=== PATIENT | female | born 1990 | race American Indian/Alaskan Native ===

== ENCOUNTER 2019-05-26 11:05 | Emergency (ER) | payer BC ==
--- NOTE | 2019-05-26 11:25 | Event Note ---
ED Screening Note Date of service: 05/26/19 Time: 11:23 ED Screening Note: 29 y/o female comes in for back pain and abd pain times 2 days. no vag d/c. LMP 04/30/19. Pain 5/10. PMH none This initial assessment/diagnostic orders/clinical plan/treatment(s) is/are subject to change based on patients health status, clinical progression and re- assessment by fellow clinical providers in the ED. Further treatment and workup at subsequent clinical providers discretion. Patient/guardian urged not to elope from the ED as their condition may be serious if not clinically assessed and managed. Initial orders include:
--- NOTE | 2019-05-26 11:48 | Emergency Department Report ---
ED Abdominal Pain HPI - General Chief Complaint: Abdominal Pain Stated Complaint: ABD/BACK PAIN Time Seen by Provider: 05/26/19 11:22 Source: patient Mode of arrival: Ambulatory Limitations: No Limitations - History of Present Illness Initial Comments: 29 yo female comes to ER with achy loer abd pain and back pain for 2 days. No dysuria or hematuria. No fever or chills. LMP 9-13 PMH ovarian cyst PSH ovarian cyst Ambulatory, non toxic, taking PO, non ill appearing on exam. Complaint: abdominal pain -: Gradual, week(s) Location: RLQ Radiation: none Migration to: no migration Severity: mild Severity scale (0 -10): 6 Quality: stabbing Consistency: intermittent Improves With: nothing Worsens With: nothing - Related Data Previous Rx's Medication Instructions Recorded Last Taken Type Ibuprofen [Motrin] 800 mg PO Q8HR PRN #30 tablet 05/26/19 Unknown Rx Allergies Allergy/AdvReac Type Severity Reaction Status Date / Time No Known Allergies Allergy Verified 05/26/19 11:14 ED Review of Systems ROS: Stated complaint: ABD/BACK PAIN Other details as noted in HPI Comment: All other systems reviewed and negative ED Past Medical Hx - Past Medical History Previous Medical History?: Yes Additional medical history: OVARIAN CYST - Surgical History Past Surgical History?: No - Social History Smoking Status: Never Smoker Substance Use Type: None - Medications Home Medications: Home Medications Medication Instructions Recorded Confirmed Last Taken Type Ibuprofen [Motrin] 800 mg PO Q8HR PRN #30 tablet 05/26/19 Unknown Rx ED Physical Exam - General Limitations: No Limitations General appearance: alert - Head Head exam: Present: normocephalic - Eye Eye exam: Present: normal appearance - ENT ENT exam: Present: normal exam - Neck Neck exam: Present: normal inspection - Respiratory Respiratory exam: Present: normal lung sounds bilaterally - Cardiovascular Cardiovascular Exam: Present: regular rate - GI/Abdominal GI/Abdominal exam: Present: soft, normal bowel sounds. Absent: distended, tenderness, guarding, rebound, rigid, diminished bowel sounds, hyperactive bowel sounds, hypoactive bowel sounds, organomegaly, mass, bruit, pulsatile mass, hernia - Rectal Rectal exam: Present: deferred - Extremities Exam Extremities exam: Present: normal inspection - Back Exam Back exam: Present: normal inspection - Neurological Exam Neurological exam: Present: alert, oriented X3 - Psychiatric Psychiatric exam: Present: normal affect, normal mood - Skin Skin exam: Present: warm, dry ED Course Vital Signs 05/26/19 11:15 Temperature 97.5 F L Pulse Rate 91 H Respiratory 16 Rate Blood Pressure 133/73 [Left] O2 Sat by Pulse 100 Oximetry ED Medical Decision Making - Lab Data Result diagrams: 05/26/19 11:38 05/26/19 11:38 - Medical Decision Making Labs 05/26/19 05/26/19 05/26/19 11:38 11:38 11:38 WBC 4.6 RBC 4.57 Hgb 13.7 Hct 41.8 MCV 92 MCH 30 MCHC 33 RDW 13.6 Plt Count 218 Lymph % (Auto) 39.3 H [place] % (Auto) 7.0 Eos % (Auto) 1.7 Baso % (Auto) 0.3 Lymph # 1.8 Ce[place] # 0.3 Eos # 0.1 Baso # 0.0 Seg Neutrophils % 51.7 Seg Neutrophils # 2.4 Sodium 138 Potassium 3.7 Chloride 103.0 Carbon Dioxide 27 Anion Gap 12 BUN 9 Creatinine 0.7 Estimated GFR > 60 BUN/Creatinine Ratio 13 Glucose 83 Calcium 8.9 Total Bilirubin 0.70 AST 17 ALT 13 Alkaline Phosphatase 62 Total Protein 7.4 Albumin 4.0 Albumin/Globulin Ratio 1.2 Lipase 15 HCG, Quant < 2 Urine Color Urine Turbidity Urine pH Ur Specific [place] Urine Protein Urine Glucose (UA) Urine Ketones Urine Blood Urine Nitrite Urine Bilirubin Urine Urobilinogen Ur Leukocyte Esterase Urine WBC (Auto) Urine RBC (Auto) U Epithel Cells (Auto) Urine Mucus 05/26/19 12:00 WBC RBC Hgb Hct MCV MCH MCHC RDW Plt Count Lymph % (Auto) [place] % (Auto) Eos % (Auto) Baso % (Auto) Lymph # [place] # Eos # Baso # Seg Neutrophils % Seg Neutrophils # Sodium Potassium Chloride Carbon Dioxide Anion Gap BUN Creatinine Estimated GFR BUN/Creatinine Ratio Glucose Calcium Total Bilirubin AST ALT Alkaline Phosphatase Total Protein Albumin Albumin/Globulin Ratio Lipase HCG, Quant Urine Color Yellow Urine Turbidity Clear Urine pH 6.0 Ur Specific [place] 1.025 Urine Protein <15 mg/dl Urine Glucose (UA) Neg Urine Ketones Neg Urine Blood Neg Urine Nitrite Neg Urine Bilirubin Neg Urine Urobilinogen 2.0 Ur Leukocyte Esterase Neg Urine WBC (Auto) 1.0 Urine RBC (Auto) 1.0 U Epithel Cells (Auto) 2.0 Urine Mucus 3+ Vital Signs 05/26/19 11:15 Temperature 97.5 F L Pulse Rate 91 H Respiratory 16 Rate Blood Pressure 133/73 [Left] O2 Sat by Pulse 100 Oximetry NO VAG BLEED OR DC LMP 9-13 PMH OV. CYST PSH OVARIAN CYST RX NONE LABS NOTED US NOTED PT IS AMBULATORY; NON TOXIC; NON ILL APPEARING; TAKING PO DC HOME WITH OBGYN FOLLOW UP - Differential Diagnosis uti/preg/ovarian cyst Critical care attestation.: If time is entered above; I have spent that time in minutes in the direct care of this critically ill patient, excluding procedure time. ED Disposition Clinical Impression: Abdominal pain, Uterine fibroid Disposition: DC- TO HOME OR SELFCARE Is pt being admited?: No Does the pt Need Aspirin: No Condition: Stable Instructions: Uterine Fibroids (ED), Abdominal Pain (ED) Additional Instructions: ALL LABS NORMAL UA NORMAL NEG ULTRASOUND SMALL FIBROID/ NO CYST FOLLOW UP WITH OBGYN FOLLOW UP WITH PCP REFERRALS BELOW MOTRIN FOR PAIN Prescriptions: Ibuprofen [Motrin] 800 mg PO Q8HR PRN #30 tablet PRN Reason: Pain, Moderate (4-6) Referrals: JANIYA LEYVA MD [Staff Physician] - 3-5 Days [facility] [Outside] - 3-5 Days Time of Disposition: 14:45
[2019-05-26 12:00] LABS: Basophils % (Auto) 0.3 % (0.0-1.8); Eosinophils # (Auto) 0.1 K/mm3 (0.0-0.4); Eosinophils % (Auto) 1.7 % (0.0-4.3); Hematocrit 41.8 % (30.3-42.9); Hemoglobin 13.7 gm/dl (10.1-14.3); Lymphocytes # (Auto) 1.8 K/mm3 (1.2-5.4); Lymphocytes % (Auto) 39.3 % (13.4-35.0); Mean Corpuscular HGB Conc 33 % (30-34); Mean Corpuscular Volume 92 fl (79-97); Monocytes # (Auto) 0.3 K/mm3 (0.0-0.8); Platelet Count 218 K/mm3 (140-440); Red Blood Count 4.57 M/mm3 (3.65-5.03); Red Cell Distribution Width 13.6 % (13.2-15.2)
[2019-05-26 12:23] LABS: Alanine Aminotransferase 13 units/L (7-56); BUN/Creatinine Ratio 13; Blood Urea Nitrogen 9 mg/dL (7-17); Calcium 8.9 mg/dL (8.4-10.2); Hemolysis Index 7
[2019-05-26 12:42] LABS: Bilirubin,Urine NEG (Negative); Blood,Urine NEG (Negative); Color,Urine Yellow (Yellow); Mucus,Urine 3+ /HPF; Protein,Urine <15 mg/dL mg/dL (Negative)
--- NOTE | 2019-05-26 14:26 | Ultrasound Report ---
ULTRASOUND PELVIC COMPLETE ULTRASOUND TRANSVAGINAL HISTORY: Back pain, right lower quadrant pain for 2 days TECHNIQUE: Transabdominal and transvaginal ultrasound with color Doppler imaging COMPARISON: None. The uterus is anteverted and measures 6.1 x 2.8 x 3.0 cm. A small hypoechoic submucosal fibroid is no jessica in the posterior wall measuring 0.8 cm. No large fibroid is detected. The cervix is unremarkable. The endometrium is homogeneous and measures 12 mm in thickness. The right ovary measures 2.6 x 1.6 x 1.6 cm. The left ovary measures 3.0 x 1.4 x 2.3 cm. No adnexal c yst or mass is identified. There is small free pelvic fluid in the cul-de-sac. IMPRESSION: Small uterine fibroid. Small amount of free pelvic fluid in the cul-de-sac. Signer Name: Jeremias Ramos Jr, MD Signed: 05/26/2019 2:21 PM Workstation Name: [id number]
[2019-05-26 15:44] VITALS: BP 120/77
== END 2019-05-26 15:44 | disposition home or self-care (01) ==
LOC: ED 11:05
DX: D25.9 Leiomyoma of uterus, unspecified (principal); Z79.1 Long term (current) use of non-steroidal anti-inflammatories (NSAID)
CPT/HCPCS: 36415; 76830; 76856; 80053; 81001; 83690; 84702; 85025; 99284

== ENCOUNTER 2019-10-24 01:00 | Emergency (ER) | payer BC ==
[2019-10-24] MEDS ORDERED: FAMOTIDINE 20 MG/2 ML INJ IV ONE (01:25)
[2019-10-24] MEDS ORDERED: methylPREDNISolone Sod Succinate 125 MG/2 ML INJ IV ONE (01:25)
[2019-10-24] MEDS ORDERED: diphenhydrAMINE 50 MG/ML VIAL IV ONE (01:25)
--- NOTE | 2019-10-24 01:34 | Emergency Department Report ---
ED Allergic Reaction HPI - General Chief complaint: Allergic Reaction Stated complaint: ALLERGIC REACTION/EMANUEL Time Seen by Provider: 10/24/19 01:25 Source: patient Mode of arrival: Ambulatory Limitations: No Limitations - History of Present Illness Initial Comments: 29-year-old female presents to ED with allergic reaction. Patient states she was eating mixed nuts approximately 1 hour ago. After eating the next month she began having diffuse itching. Patient denies any allergy in the past or any known food allergy. Patient states she went home and took a shower to see if that will help but it did not, so she came to the emergency room. Patient denies any shortness of breath or sensation of throat closing. Patient reports "trouble breathing" but that it because she says her nose is stopped up. She has no shortness of breath. MD Complaint: allergic reaction -: hour(s) (1) Exposure: food Symptoms: itching. denies: difficulty breathing, nausea, vomiting Severity: moderate Treatment Prior to Arrival: none Previous Allergy History: none - Related Data Previous Rx's Medication Instructions Recorded Last Taken Type Ibuprofen [Motrin] 800 mg PO Q8HR PRN #30 tablet 05/26/19 Unknown Rx EPINEPHrine [Epipen] 0.3 mg IJ ONCE #1 auto.injct 10/24/19 Unknown Rx predniSONE [Deltasone] 50 mg PO QDAY #5 tab 10/24/19 Unknown Rx Allergies Allergy/AdvReac Type Severity Reaction Status Date / Time No Known Allergies Allergy Verified 05/26/19 11:14 ED Review of Systems ROS: Stated complaint: ALLERGIC REACTION/EMANUEL Other details as noted in HPI Comment: All other systems reviewed and negative ENT: denies: throat pain Respiratory: denies: cough, shortness of breath Gastrointestinal: denies: nausea, vomiting Skin: pruritus. denies: rash ED Past Medical Hx - Past Medical History Previous Medical History?: Yes Additional medical history: OVARIAN CYST - Surgical History Past Surgical History?: No - Social History Smoking Status: Never Smoker Substance Use Type: None - Medications Home Medications: Home Medications Medication Instructions Recorded Confirmed Last Taken Type Ibuprofen [Motrin] 800 mg PO Q8HR PRN #30 tablet 05/26/19 Unknown Rx EPINEPHrine [Epipen] 0.3 mg IJ ONCE #1 auto.injct 10/24/19 Unknown Rx predniSONE [Deltasone] 50 mg PO QDAY #5 tab 10/24/19 Unknown Rx ED Physical Exam - General Limitations: No Limitations General appearance: alert, in no apparent distress - Head Head exam: Present: atraumatic, normocephalic - Eye Eye exam: Present: normal appearance, EOMI - ENT ENT exam: Present: normal exam, normal orophraynx (no swelling, uvula midline) - Neck Neck exam: Present: normal inspection - Respiratory Respiratory exam: Present: normal lung sounds bilaterally. Absent: respiratory distress, wheezes, stridor - Cardiovascular Cardiovascular Exam: Present: regular rate, normal rhythm - GI/Abdominal GI/Abdominal exam: Present: soft. Absent: distended, tenderness - Extremities Exam Extremities exam: Present: normal inspection - Neurological Exam Neurological exam: Present: alert, oriented X3 - Psychiatric Psychiatric exam: Present: normal affect, normal mood - Skin Skin exam: Present: warm, dry, intact, normal color. Absent: rash ED Course Vital Signs 10/24/19 10/24/19 10/24/19 01:10 01:36 03:17 Temperature 98.6 F Pulse Rate 94 H 82 85 Respiratory 18 18 18 Rate Blood Pressure 124/78 Blood Pressure 121/74 135/80 [Left] O2 Sat by Pulse 99 100 100 Oximetry Critical care attestation.: If time is entered above; I have spent that time in minutes in the direct care of this critically ill patient, excluding procedure time. ED Disposition Clinical Impression: Allergic reaction, Food allergy Disposition: DC-01 TO HOME OR SELFCARE Is pt being admited?: No Condition: Stable Instructions: Food Allergy (ED), Anaphylaxis (ED) Prescriptions: predniSONE [Deltasone] 50 mg PO QDAY #5 tab EPINEPHrine [Epipen] 0.3 mg IJ ONCE #1 auto.injct Time of Disposition: 04:50
[2019-10-24 05:23] VITALS: BP 122/69
== END 2019-10-24 05:23 | disposition home or self-care (01) ==
LOC: ED 01:00
DX: T78.1XXA Other adverse food reactions, not elsewhere classified, initial encounter (principal); Z98.890 Other specified postprocedural states; Z79.899 Other long term (current) drug therapy; X58.XXXA Exposure to other specified factors, initial encounter
CPT/HCPCS: 96374; 96375; 99282; J1200; J2930